=== PATIENT | male | born 1945 | race Caucasian/White ===

== ENCOUNTER 2020-06-08 07:39 | Outpatient (CLI) | payer MEDICARE, BC ==
[2020-06-08] VITALS (21 sets, daily range): BP systolic 136–191; BP diastolic 77–101
== END 2020-06-08 23:59 | disposition home or self-care (01) ==
LOC: CARD DIAG 07:39
PROVIDERS: ATTEND Internal Medicine Cardiovascular Disease
DX: R42 Dizziness and giddiness (principal)
CPT/HCPCS: 93660

== ENCOUNTER 2022-04-12 08:57 | Day surgery (SDC) | payer MEDICARE, BC ==
[2022-04-12] VITALS (11 sets, daily range): BP systolic 120–155; BP diastolic 70–97
[~2022-04-12] VITALS: Ht 182.9 cm; Wt 111.0 kg
[2022-04-12] MEDS ORDERED: nitroGLYCERIN-Tridil 50MG/D5W 0 ML IV ONE (09:17)
[2022-04-12] MEDS ORDERED: iohexol 350MG/ML 100ml bottle IV ONE (09:17)
[2022-04-12] MEDS ORDERED: verapamil 2.5 mg/ml inj IV ONE (09:17)
[2022-04-12] MEDS ORDERED: fentaNYL/PF 50MCG/1 ML 2ML syringe ONE (09:17)
[2022-04-12] MEDS ORDERED: LIDOcaine 1% 30ml preserv. free vial ONE (09:17)
[2022-04-12] MEDS ORDERED: midazolam 1 mg/ML 2ml injection ONE (09:17)
[2022-04-12] MEDS ORDERED: heparin 1,000unit/ml 10ml vial 10 ML ONE (09:17)
[2022-04-12] MEDS ORDERED: METO25TA6 PO (09:24)
[2022-04-12] MEDS ORDERED: APIX5TAB3 PO (09:24)
[2022-04-12] MEDS ORDERED: ROSU20TA31 PO (09:24)
[2022-04-12] MEDS ORDERED: METF-1203 PO (09:24)
[2022-04-12] MEDS ORDERED: nitroGLYCERIN-Tridil 50MG/D5W 250 ML IV ONE (09:28)
[2022-04-12] MEDS ORDERED: diphenhydrAMINE 25mg capsule PO PRN (10:00)
[2022-04-12] MEDS ORDERED: acetylcysteine 200 MG/ml 4ml vial PO PRN (10:00)
[2022-04-12] MEDS ORDERED: normal saline 1,000 ML IV SCH (10:00)
[2022-04-12] MEDS ORDERED: LORazepam 0.5 MG tablet PO PRN (10:10)
--- NOTE | 2022-04-12 10:46 | NUR ---
Patient back from [employer] with no PCI. Bedside report received from Billy LOOMIS. Vasc band to right wrist - no signs of bleeding. Pulse intact. Vital signs stable. NSR on potline monitor.
[2022-04-12] MEDS ORDERED: normal saline 1000ml 1,000 ML IV SCH (11:15)
== END 2022-04-12 15:50 | disposition home or self-care (01) ==
LOC: SSTAY O 08:57
PROVIDERS: ATTEND Internal Medicine Cardiovascular Disease
DX: R94.39 Abnormal result of other cardiovascular function study (principal); I25.10 Atherosclerotic heart disease of native coronary artery without angina pectoris; I48.0 Paroxysmal atrial fibrillation; I10 Essential (primary) hypertension; G47.33 Obstructive sleep apnea (adult) (pediatric); E11.9 Type 2 diabetes mellitus without complications; E78.5 Hyperlipidemia, unspecified; Z79.899 Other long term (current) drug therapy; Z82.3 Family history of stroke; Z88.0 Allergy status to penicillin; Z88.1 Allergy status to other antibiotic agents; Z88.6 Allergy status to analgesic agent; Z88.8 Allergy status to other drugs, medicaments and biological substances; Z98.890 Other specified postprocedural states
CPT/HCPCS: 76937; 82948; 93005; 93458; 99152; 99153; A6258; C1769; C1894; J1644; J2250; J3010; J3490; J7030; Q0163; Q9967; A4620; A5120; A6402